=== PATIENT | female | born 1970 | race African-American/Black ===

== ENCOUNTER 2020-06-14 12:09 | Emergency (ER) | payer MEDICAID ==
[~2020-06-14] VITALS: Ht 165.1 cm; Wt 111.4 kg
[2020-06-14 12:13] VITALS: BP 165/107
--- NOTE | 2020-06-14 14:56 | NUR ---
TASK RN NOTE: PT SITTING UP IN BED, C/O PAIN IN GUMS AND TONGUE FROM GOLD PLATING PLACED ON TEETH 02/2020. AWAITING KWAME GARCIA. REQUESTS URINE DRUG TEST "BECAUSE THE WAY I'M ACTING PEOPLE ASK WHAT ARE YOU ON AND I'M NOT ON ANYTHING."
== END 2020-06-14 16:22 | disposition home or self-care (01) ==
LOC: ED 13:26
DX: K08.89 Other specified disorders of teeth and supporting structures (principal); F41.1 Generalized anxiety disorder
CPT/HCPCS: 99283